=== PATIENT | female | born 1995 | race African-American/Black ===

== ENCOUNTER 2017-07-17 19:59 | Emergency (ER) | payer SELFPAY ==
[2017-07-17 20:20] VITALS: BP 116/68
--- NOTE | 2017-07-17 22:23 | ER Document Report ---
ED General - General Chief Complaint: Cold Symptoms Stated Complaint: FEVER Time Seen by Provider: 07/17/17 20:29 Mode of Arrival: Ambulatory Information source: Patient Notes: Patient is 21-year-old black female brings in her daughter who is running a temp of 103.1 here in ER and herself in because she started 2 days ago with some cough congestion runny nose as well. Mother denies having any fever she has had a mildly productive cough of greenish yellow in nature. Patient states that when she lays down she has increased amount of coughing. She admits to smoking like 2 cigarettes a day. She is a full-time student currently. Complains of a scratchy sore throat. Patient also states that her primary reason for being seen tonight is that she has a severe sinus headache that is in the frontal area of her head. TRAVEL OUTSIDE OF THE [place] IN LAST 30 DAYS: No - HPI Patient complains to provider of: Chief sore throat congestion runny nose cough Onset: Other Onset/Duration: Gradual Quality of pain: Achy Severity: Mild Pain Level: 1 Context: Upper respiratory symptoms Associated symptoms: Body/muscle aches, Chills, Productive cough, Hoarseness, Rhinnorhea, Sinus pain/drainage, Sore throat Exacerbated by: Denies. denies: Supine, Sitting, Standing, Movement, Walking, Coughing, Deep breathing, Food, Other Relieved by: denies: Denies, Supine, Sitting, Standing, Remaining still, Antacids, Food, Other Similar symptoms previously: No Recently seen / treated by doctor: No Past Medical History - General Information source: Patient - Social History Smoking Status: Current Every Day Smoker Cigarette use (# per day): Yes - 2 cigarettes a day Chew tobacco use (# tins/day): No Frequency of alcohol use: Occasional Drug Abuse: None Lives with: Family Family History: Reviewed & Not Pertinent Patient has suicidal ideation: No Patient has homicidal ideation: No Renal/ Medical History: Denies: Hx Peritoneal Dialysis Review of Systems - Review of Systems Constitutional: Chills EENT: Nose congestion, Sinus pressure, Sinus discharge, Throat pain Physical Exam - Vital signs Vitals: Temp Pulse Resp BP Pulse Ox 98.8 F 89 18 116/68 97 07/17/17 20:19 07/17/17 20:19 07/17/17 20:19 07/17/17 20:19 07/17/17 20:19 Interpretation: Normal - General General appearance: Appears well, Alert - HEENT Head: Atraumatic Eyes: Normal Ears: Normal External canal: Normal, Other - Mild cerumen without any obstruction of the TMs Tympanic membrane: Bulging, Other - Examination of the tympanic membranes show the they are bulging bilaterally with air-fluid levels noted. Sinus: Frontal, Maxillary, Swelling, Tenderness Nasal: Purulent discharge Mouth/Lips: Normal Mucous membranes: Normal, Moist Pharynx: Other - Examination of the posterior pharynx shows bilateral erythema with some mild tonsillar enlargement bilaterally with no exudate. Uvula is midline with erythema no exudate. Airways patent.. No: Normal, Blood in hypopharynx, Erythema, Exudate, Peritonsillar abscess, Post nasal drainage, Retropharyngeal abscess, Tonsillar hypertrophy, Uvular edema, Potential airway comprom. Neck: Normal. No: Anterior cervical chain, Posterior cervical chain, Brudzinski , Carotid bruit, Kernig's, Lymphadenopathy, Meningismus, Neck mass, Shotty nodes , Subcutaneous emphysema, Supple, Thyroid nodule, Thyromegally, Other - Respiratory Respiratory status: No respiratory distress Chest status: Nontender Breath sounds: Normal, Productive cough. No: Decreased air movement, Nonproductive cough, Rales, Rhonchi, Stridor, Wheezing, Other Chest palpation: Normal - Cardiovascular Rhythm: Regular Heart sounds: Normal auscultation Murmur: No - Neurological Neuro grossly intact: Yes Cognition: Normal Orientation: AAOx4 Marston Coma Scale Eye Opening: Spontaneous Flory Coma Scale Verbal: Oriented [place] Coma Scale Motor: Obeys Commands Flory Coma Scale Total: 15 Speech: Normal Course - Vital Signs Vital signs: Temp Pulse Resp BP Pulse Ox 98.8 F 89 18 116/68 97 07/17/17 20:19 07/17/17 20:19 07/17/17 20:19 07/17/17 20:19 07/17/17 20:19 - Transfer of Care Notes: 07/17/17 22:24 Physical examination patient is very tender over frontal sinuses. She has some nasty drainage in the back of her throat. No she does not have a fever I do believe that this is really nasty sinusitis that needs some intervention with antibiotics. I will place her on Augmentin for 10 days. We will put her on a low steroid taper. And Sudafed to help dry it up. Discharge - Discharge Clinical Impression: Bacterial sinusitis Upper respiratory infection Qualifiers: URI type: unspecified URI Qualified Code(s): J06.9 - Acute upper respiratory infection, unspecified Condition: Good Instructions: Upper Respiratory Illness ([facility]), Acetaminophen, Sinusitis ([facility]) Additional Instructions: Home and rest. Medications prescribed. Use nasal saline 3-4 times a day to keep the nose moist and secretions thin. Decrease smoking even more than normally half. Return here for any concerns or problems. Prescriptions: Amoxicillin/Potassium Clav [Augmentin 875-125 Tablet] 1 each PO BID #20 tablet Fluconazole [Diflucan] 150 mg PO ONCE PRN #1 tablet PRN Reason: Methylprednisolone [Medrol Dosepack (4 mg/Tab) 21 Tab/Dosepak] 4 mg PO ASDIR PRN #21 tab.ds.pk PRN Reason: Pseudoephedrine HCl [Sudafed 12-Hour] 120 mg PO BID #20 tablet.er
== END 2017-07-17 22:54 | disposition home or self-care (01) ==
LOC: ER 19:59
DX: J32.9 Chronic sinusitis, unspecified (principal); B96.89 Other specified bacterial agents as the cause of diseases classified elsewhere; J02.9 Acute pharyngitis, unspecified; J35.1 Hypertrophy of tonsils; R05 Cough; M79.1 Myalgia; R49.0 Dysphonia; F17.210 Nicotine dependence, cigarettes, uncomplicated
CPT/HCPCS: 99283